=== PATIENT | female | born 1940 | race Caucasian/White ===

== ENCOUNTER 2016-10-29 07:54 | Day surgery (SDC) | payer MEDICARE, OTHER ==
[~2016-10-29 07:54] MED LIST: PRINZIDE1 TA1 PO; RESTASIS OPH; SPIRIVA INH; SURBEX-T1 TAB PO; VITAMIN D31000 UNIT PO
== END 2016-10-29 23:59 | disposition home or self-care (01) ==
LOC: SDC 07:54
PROVIDERS: Ophthalmology
PROC: 085J3ZZ Destruction of Right Lens, Percutaneous Approach (ICD-10-PCS; principal; 2016-10-29 10:00)
DX: H26.491 Other secondary cataract, right eye (principal); I10 Essential (primary) hypertension; M19.90 Unspecified osteoarthritis, unspecified site; M41.9 Scoliosis, unspecified; Z98.41 Cataract extraction status, right eye; Z98.42 Cataract extraction status, left eye; Z90.710 Acquired absence of both cervix and uterus; Z90.49 Acquired absence of other specified parts of digestive tract
CPT/HCPCS: A9270-GY